=== PATIENT | male | born 1990 | race Caucasian/White ===

== ENCOUNTER 2021-10-15 21:49 | Emergency (ER) | payer SELFPAY ==
[~2021-10-15] VITALS: Ht 165 cm; Wt 57.6 kg
[2021-10-15] MEDS ORDERED: ONDANSETRON 4 MG (ZOFRAN) ORAL DISSOLVE TAB PO ONE (22:45)
--- NOTE | 2021-10-15 22:55 | ED Cough/URI ---
General Chief Complaint: Cough/Cold/Flu Symptoms Stated Complaint: ELEVATED HR, NOT EATING,SLEEPING Nursing Triage Note: c/o generalized body aches, subjective fever, abdominal cramping x3 days. Source: patient Exam Limitations: no limitations History of Present Illness Date Seen by Provider: October 15, 2021 Time Seen by Provider: 22:36 Initial Comments Patient is a 31-year-old male who presents ED with flulike symptoms. Body aches, fatigue, generalized weakness for the past 3 days. Reports diarrhea today as well as one episode of vomiting yesterday. Patient reports mild cough generalized abdominal pain. No specific pain at this time. Appears to be worse when he bends over but no pain to the abdomen today. No headache, visual changes, sore throat, ear pain, headache. Not up-to-date his COVID or flu vaccine. No known medical problems. Denies of any known fever, dysuria, hematuria, anyone sick at home Allergies and Home Medications Allergies Coded Allergies: No Known Drug Allergies (Unverified , 10/15/21) Patient Home Medication List Home Medication List Reviewed: Yes Ondansetron (Ondansetron Odt) 4 Mg Tab.rapdis, 4 MG PO Q6H Prescribed by: AMELIA ROSALES on 10/15/212309 Ondansetron (Ondansetron Odt) 4 Mg Tab.rapdis, 4 MG PO Q6H Prescribed by: AMELIA ROSALES on 10/15/21 2316 Review of Systems Review of Systems Constitutional: No chills, No diaphoresis; malaise, weakness EENTM: No blurred vision, No double vision, No mouth pain, No mouth swelling Respiratory: cough; No orthopnea Cardiovascular: No chest pain Gastrointestinal: abdominal pain, diarrhea, nausea Genitourinary: No decreased output, No discharge Musculoskeletal: No back pain, No joint pain Skin: No change in color; change in hair/nails Psychiatric/Neurological: Denies Anxiety All Other Systems Reviewed Negative Unless Noted: Yes Past [id number] Hx Patient Social History Tobacco Use?: Yes Substance use?: Yes Substance type: Marijuana Alcohol Use?: Yes Alcohol Frequency: Once in a while Pt feels they are or have been: No Past Medical History Surgery/Hospitalization HX: cholecystectomy Physical Exam Vital Signs - First Documented 10/15/21 22:20 Temp 37.0 Pulse 103 Resp 18 B/P (MAP) 108/64 (79) Pulse Ox 98 O2 Delivery Room Air Capillary Refill : Less Than 3 Seconds Height: '" Weight: lbs. oz. 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, no motor/sensory deficits, alert, normal mood/affect, oriented x 3 Skin: normal color, warm/dry Progress/Results/Core Measures Suspected Sepsis SIRS Temperature: Pulse: 103 Respiratory Rate: 18 Blood Pressure 108 /64 Mean: 79 Results/Orders Lab Results Laboratory Tests Test 10/15/21 22:25 Range/Units Influenza Type A (RT-PCR) Not Detected Not Detecte Influenza Type B (RT-PCR) Not Detected Not Detecte SARS-CoV-2 RNA (RT-PCR) Not Detected Not Detecte My Orders Orders - SENTHIL STARK Covid 19 Inhouse Test (10/15/21 22:23) Influenza A And B By Pcr (10/15/21 22:23) Ondansetron Oral Dissolve Tab (Zofran (10/15/21 22:45) Acetaminophen Tablet/Caplet (Tylenol T (10/15/21 23:15) Medications Given in ED Current Medications Medications Dose Ordered Sig/Destinee Route Start Time Stop Time Status Last Admin Dose Admin Acetaminophen 650 mg ONCE ONCE PO 10/15/21 23:15 10/15/21 23:16 DC 10/15/21 23:21 650 MG Vital Signs/I&O 10/15/21 10/15/21 22:20 23:20 Temp 37.0 37.1 Pulse 103 89 Resp 18 18 B/P (MAP) 108/64 (79) 108/64 Pulse Ox 98 99 O2 Delivery Room Air Room Air Capillary Refill : Less Than 3 Seconds Blood Pressure Mean: 79 Departure Communication (PCP) Patient presents ED with flulike symptoms. Patient with no known medical problems. Lung sounds clear bilateral. He is afebrile. No abdominal tenderness. patient had 1 episode of vomiting and few episodes of diarrhea today. No bloody or dark tarry stool. Exam otherwise benign. COVID influenza negative. Patient was requesting oral fluids. Patient was given oral Zofran ODT and tolerating p.o. fluids without any difficulties. Initially discussed lab work and IV fluids patient refused. Physical exam otherwise benign at this time. No surgical abdomen. Recommend conservative treatment at this time. Likely viral however if any worsening symptoms to return back to ED for further evaluation. Follow-up with your PCP in 2 to 3 days Impression Primary Impression: Viral syndrome Disposition: HOME, SELF-CARE Condition: Stable Departure-Patient Inst. Decision time for Depature: 23:09 Referrals: NO,LOCAL PHYSICIAN (PCP/Family) Primary Care Physician Patient Instructions: Viral Syndrome (DC) Scripts Ondansetron (Ondansetron Odt) 4 Mg Tab.rapdis 4 MG PO Q6H, #8 TAB Prov: SENTHIL STARK 10/15/21 Ondansetron (Ondansetron Odt) 4 Mg Tab.rapdis 4 MG PO Q6H, #8 TAB Prov: SENTHIL STARK 10/15/21 Work/School Note: Work Release Form Date Seen in the Emergency Department: October 15, 2021 Return to Work: October 18, 2021 SENTHIL STARK October 15, 2021 22:55
[2021-10-15] MEDS ORDERED: ONDA4TAB11 PO ×2 (23:10→23:16)
[2021-10-15] MEDS ORDERED: ACETAMINOPHEN 325 MG TABLET PO ONE (23:15)
[2021-10-15 23:20] VITALS: BP 108/64
== END 2021-10-15 23:23 | disposition home or self-care (01) ==
LOC: EDUNIT# 21:49 → ER 21:56
DX: B34.9 Viral infection, unspecified (principal); Z20.822 Contact with and (suspected) exposure to COVID-19
CPT/HCPCS: 87636; 99283